=== PATIENT | female | born 1970 | race Caucasian/White ===

== ENCOUNTER → 2023-12-09 | Outpatient (CLI) | payer BC ==
[2005-05-02 09:10] VITALS: TEMP 99
[~2023-12-09] MED LIST: BACTRIM DS 8001 TAB PO; BCP TD; PERCOCET 5/321 UDTAB PO
== END ==
LOC: MC.RAD 10:47
DX: Z12.31 Encounter for screening mammogram for malignant neoplasm of breast (principal)